=== PATIENT | male | born 1945 | race Caucasian/White ===

== ENCOUNTER 2018-03-09 09:16 | Day surgery (SDC) | payer MEDICARE, OTHER ==
[2018-03-09] MEDS ORDERED: Sodium Chloride 0.9% 10 ML Syringe FLUSH PRN (10:45)
[2018-03-09] MEDS ORDERED: Lidocaine 1% 30 ML SDV INJECT ONE (12:00)
[2018-03-09] MEDS ORDERED: Propofol 200 MG/20 ML SDV IV ONE (12:00)
--- NOTE | 2018-03-10 13:29 | OR ---
DATE OF OPERATION: 03/09/2018 SURGEON: Vel Lopez MD PREOPERATIVE DIAGNOSIS: Cataract right eye. POSTOPERATIVE DIAGNOSIS: Cataract right eye. OPERATION PERFORMED: Phacoemulsification of cataract right eye with placement of an Espinosa, model ZCB00, 22.5 diopter, foldable, posterior chamber intraocular lens. DESCRIPTION OF PROCEDURE: Peribulbar anesthetic was performed using a mixture of 2% lidocaine with Wydase. The patient was prepped and draped in the usual fashion. A 3 mm fornix based conjunctival flap was performed at the 10 o'clock position. Hemostasis was obtained using diathermy, and a 2.8 mm grooved near clear corneal incision was then made. A stab incision was made into the anterior chamber at the 12 o'clock position and a second stab wound incision was made underlying the grooved near clear corneal incision. Viscoat was instilled into the anterior chamber, and a continuous tear capsulotomy was performed. Hydrodissection was accomplished with balanced salt solution, and the nucleus was removed in a divide and conquer fashion. The remaining cortical material was removed with the irrigation and aspiration unit. Viscoat was instilled into the anterior chamber, and an Espinosa, model ZCB00, 22.5 diopter, foldable, posterior chamber intraocular lens was placed into the capsular bag, the haptics being positioned at the 3 and 9 o'clock positions. The residual Viscoat was removed from the anterior chamber and the anterior chamber reformed with balanced salt solution. The wound was checked and noted to be watertight. The conjunctiva was secured in its original position with diathermy. Alphagan and Maxitrol Ointment were then placed into the patient's eye. The patient tolerated the procedure well and it was without complication. Elapsed phacoemulsification time was 16.5 seconds. Postoperative instructions as related to activities as well as medications were reviewed with the patient. The patient was instructed to return to see me on the day following surgery for the first postoperative check. The patient was also instructed to contact me prior to that time if he were to have any problems. /[id number] DEG/MODL CC: STEVEN Chavez, [facility]
== END 2018-03-09 13:40 | disposition home or self-care (01) ==
LOC: FB.SDS 09:16
PROVIDERS: ATTEND Ophthalmology
DX: H25.813 Combined forms of age-related cataract, bilateral (principal); I12.9 Hypertensive chronic kidney disease with stage 1 through stage 4 chronic kidney disease, or unspecified chronic kidney disease; N18.3 Chronic kidney disease, stage 3 (moderate); I48.2 Chronic atrial fibrillation; E78.00 Pure hypercholesterolemia, unspecified; D75.1 Secondary polycythemia; Z87.891 Personal history of nicotine dependence; Z79.01 Long term (current) use of anticoagulants; Z79.899 Other long term (current) drug therapy; Z88.0 Allergy status to penicillin
CPT/HCPCS: 00142; 66984; C1780; J2704

== ENCOUNTER 2018-04-06 09:30 | Day surgery (SDC) | payer MEDICARE, OTHER ==
[2018-04-06] MEDS ORDERED: Sodium Chloride 0.9% 10 ML Syringe FLUSH PRN (09:45)
[2018-04-06] MEDS ORDERED: Lactated Ringers 1,000 ML IV SCH (09:45)
--- NOTE | 2018-04-07 09:46 | OR ---
DATE OF OPERATION: 04/06/2018 SURGEON: Vel Lopez MD PREOPERATIVE DIAGNOSIS: Cataract, left eye. POSTOPERATIVE DIAGNOSIS: Cataract, left eye. OPERATION PERFORMED: Phacoemulsification of cataract, left eye, with placement of an Espinosa, model ZCB00, 23 diopters, foldable, posterior chamber intraocular lens. 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 DESCRIPTION OF PROCEDURE: Peribulbar anesthetic was performed using a mixture of 2% lidocaine with Wydase. The patient was prepped and draped in the usual fashion. A 3 mm fornix based conjunctival flap was performed at the 10 o'clock position. Hemostasis was obtained using diathermy, and a 2.8 mm grooved near clear corneal incision was then made. A stab incision was made into the anterior chamber at the 12 o'clock position and a second stab wound incision was made underlying the grooved near clear corneal incision. Viscoat was instilled into the anterior chamber, and a continuous tear capsulotomy was performed. Hydrodissection was accomplished with balanced salt solution, and the nucleus was removed in a divide and conquer fashion. The remaining cortical material was removed with the irrigation and aspiration unit. Viscoat was instilled into the anterior chamber, and an Espinosa, model ZCB00, 23 diopters, foldable, posterior chamber intraocular lens was placed into the capsular bag, the haptics being positioned at the 2 and 8 o'clock positions. The residual Viscoat was removed from the anterior chamber and the anterior chamber reformed with balanced salt solution. The wound was checked and noted to be watertight. The conjunctiva was secured in its original position with diathermy. Alphagan and Maxitrol Ointment were then placed into the patient's eye. The patient tolerated the procedure well and it was without complication. Elapsed phacoemulsification time was 19.4 seconds. Postoperative instructions as related to activities as well as medications were reviewed with the patient. The patient was instructed to return to see me on the day following surgery for the first postoperative check. The patient was also instructed to contact me prior to that time if the patient was to have any problems. /[id number] DEG/MODL Cc: STEVEN Chavez, [facility]
== END 2018-04-06 13:11 | disposition home or self-care (01) ==
LOC: FB.SDS 09:30
PROVIDERS: ATTEND Ophthalmology
PROC: 08RK3JZ Replacement of Left Lens with Synthetic Substitute, Percutaneous Approach (ICD-10-PCS; principal; 2018-04-06)
DX: H26.9 Unspecified cataract (principal); E78.00 Pure hypercholesterolemia, unspecified; I48.91 Unspecified atrial fibrillation; I10 Essential (primary) hypertension; Z79.01 Long term (current) use of anticoagulants; Z88.0 Allergy status to penicillin; Z79.899 Other long term (current) drug therapy; Z87.891 Personal history of nicotine dependence
CPT/HCPCS: 00142; 66984; J7050; C1780

== ENCOUNTER 2021-05-06 15:26 | Emergency (ER) | payer MEDICARE, OTHER ==
--- NOTE | 2021-05-06 16:22 | EDM.PDOC ---
ED HPI GENERAL MEDICAL PROBLEM - General Stated Complaint: POST OP ISSUSES Time Seen by Provider: 05/06/21 15:45 Source of Information: Reports: Patient History Limitations: Reports: No Limitations - History of Present Illness INITIAL COMMENTS - FREE TEXT/NARRATIVE: c/o R knee swelling and pain pt with R TKR 1w ago in [facility] with Dr Minaya there is inc'd pain and swell x 18h, called Dr Minaya's office and instructed to bring pt to ED pt with clinical evidence of cellulitis, given dose of vanco here pt d/w Dr Fried from [facility] ED who accepted pt to hosp pt, said he would talk with hospitalist [facility] called back with bed assignment - Related Data Allergies Allergy/AdvReac Type Severity Reaction Status Date / Time Penicillins Allergy Rash Verified 05/06/21 16:04 Home Meds: Home Meds Lisinopril 10 mg PO DAILY 03/05/18 [History] Warfarin [Coumadin] 2.5 mg PO TUFR 03/05/18 [History] Warfarin [Coumadin] 5 mg PO SUMOWETHSA 03/05/18 [History] atorvaSTATin [Lipitor] 20 mg PO DAILY 03/05/18 [History] dilTIAZem HCL [Cartia Xt] 300 mg PO DAILY 03/05/18 [History] Past Medical History HEENT History: Reports: Cataract, Impaired Vision Cardiovascular History: Reports: Afib, Arrhythmia, Hypertension Respiratory History: Reports: None Other Respiratory History: GRANULOMA RIGHT UPPER LOBE Gastrointestinal History: Reports: Colon Polyp Musculoskeletal History: Reports: None Neurological History: Reports: None Psychiatric History: Reports: Addiction Endocrine/Metabolic History: Reports: None Hematologic History: Reports: None Immunologic History: Reports: None Oncologic (Cancer) History: Reports: None Dermatologic History: Reports: None - Infectious Disease History Infectious Disease History: Reports: Chicken Pox, Measles - Past Surgical History Female Surgical History: Social & Family History - Family History Family Medical History: No Pertinent Family History - Caffeine Use Caffeine Use: Reports: Coffee, Soda ED ROS GENERAL - Review of Systems Review Of Systems: See Below Constitutional: Reports: No Symptoms HEENT: Reports: No Symptoms Respiratory: Reports: No Symptoms Cardiovascular: Reports: No Symptoms Endocrine: Reports: No Symptoms GI/Abdominal: Reports: No Symptoms : Reports: No Symptoms Musculoskeletal: Reports: No Symptoms Skin: Reports: Erythema, Change in Color Neurological: Reports: No Symptoms Psychiatric: Reports: No Symptoms Hematologic/Lymphatic: Reports: No Symptoms Immunologic: Reports: No Symptoms ED EXAM, GENERAL - Physical Exam Exam: See Below Exam Limited By: No Limitations General Appearance: Alert, WD/WN, No Apparent Distress Ears: Hearing Grossly Normal Nose: Normal Inspection Throat/Mouth: Normal Voice, No Airway Compromise Head: Atraumatic, Normocephalic Neck: Normal Inspection, Supple, Non-Tender, Full Range of Motion Respiratory/Chest: No Respiratory Distress Cardiovascular: Regular Rate, Rhythm GI/Abdominal: Soft Neurological: Alert, Oriented, CN II-XII Intact, Normal Cognition, No Motor/Sensory Deficits Psychiatric: Normal Affect, Normal Mood Skin Exam: Other (long midline scar over R knee anteriorly with multiple bruno present, mod red/warm/swell/1-2+ tender extending out 20 cm from midline in lower 2/3rds of incision and below bottom edge) Lymphatic: No Adenopathy Course - Orders/Labs/Meds Orders: Active Orders 24 hr Category Date Time Status VANCOmycin 1.5 GM/300 ML 300 ml Med 05/06/21 16:15 Active IV ONETIME Medication Orders Vancomycin HCl (Vancomycin 1.5 Gm/300 Ml) 300 mls @ 200 mls/hr IV ONETIME ONE Stop: 05/06/21 17:44 Meds: Medications Generic Name Dose Route Start Last Admin Trade Name Freq PRN Reason Stop Dose Admin Vancomycin HCl 300 mls @ 200 mls/hr 05/06/21 16:15 Vancomycin 1.5 Gm/300 Ml IV 05/06/21 17:44 ONETIME ONE - Re-Assessments/Exams Free Text/Narrative Re-Assessment/Exam: 05/06/21 18:10 typical findings for cellulitis, vanco given here with fading of red, margins marked in ink will transfer to [facility] for additional IV antbxs and removal of bruno likely cutaneous d/t incision and bruno, less likely involvement of prosthesis altho this cannot be stated with certainty baseline labs obtained, wbc is wnl, creat improved from previous Departure - Departure Time of Disposition: 17:28 Disposition: DC/Tfer to [facility] 02 Condition: Good Clinical Impression: Postoperative cellulitis of surgical wound, Chronic renal insufficiency - Discharge Information *PRESCRIPTION DRUG MONITORING PROGRAM REVIEWED*: Not Applicable *COPY OF PRESCRIPTION DRUG MONITORING REPORT IN PATIENT TERELL: Not Applicable Instructions: Wound Infection - My Orders Last 24 Hours: My Active Orders 05/06/21 16:15 VANCOmycin 1.5 GM/300 ML 300 ml IV ONETIME - Assessment/Plan Last 24 Hours: My Active Orders 05/06/21 16:15 VANCOmycin 1.5 GM/300 ML 300 ml IV ONETIME
[2021-05-06] MEDS: VANCOmycin 1.5 GM/300 ML 300 ML IV ONE (16:50)
== END 2021-05-06 18:30 ==
LOC: FB.ED 15:26
DX: T81.49XA Infection following a procedure, other surgical site, initial encounter (principal); L03.115 Cellulitis of right lower limb; I12.9 Hypertensive chronic kidney disease with stage 1 through stage 4 chronic kidney disease, or unspecified chronic kidney disease; N18.9 Chronic kidney disease, unspecified; I48.91 Unspecified atrial fibrillation; Z88.0 Allergy status to penicillin; Z79.01 Long term (current) use of anticoagulants; Z79.899 Other long term (current) drug therapy
CPT/HCPCS: 36415; 80053; 85025; 85610; 86140; 96365; 99284; J3370